=== PATIENT | female | born 1990 | race Caucasian/White ===

== ENCOUNTER 2020-09-30 13:33 | Emergency (ER) | payer SELFPAY ==
--- NOTE | 2020-09-30 14:42 | RAD REPORT ---
EXAM DESCRIPTION: RAD - Wrist Right 3 View - 09/30/2020 2:32 pm CLINICAL HISTORY: PAIN Pain COMPARISON: No comparisons FINDINGS: Intraarticular distal radius fracture is seen with mild impaction. Ulnar styloid fracture also present. Mild soft tissue swelling is seen about the wrist.
--- NOTE | 2020-09-30 14:55 | ER ---
Nurse's Notes [facility] Name: Mariana Tovar Age: 30 yrs Sex: Female : 1990 Arrival Date: 09/30/2020 Time: 13:36 Bed 12 Private MD: Diagnosis: Distal right radius fracture;Ulnar styloid fracture right wrist Presentation: 09/30 13:49 Chief complaint: Patient states: R wrist pain after slipping on ice just prior to mg2 arrival. Coronavirus screen: Client denies travel out of the [place] in the last 14 days. Ebola Screen: Patient denies exposure to infectious person. Patient denies travel to an Ebola-affected area in the 21 days before illness onset. Initial Sepsis Screen: Does the patient meet any 2 criteria? No. Patient's initial sepsis screen is negative. Does the patient have a suspected source of infection? No. Patient's initial sepsis screen is negative. Risk Assessment: Do you want to hurt yourself or someone else? Patient reports no desire to harm self or others. Onset of symptoms was September 30, 2020. 13:49 Method Of Arrival: Ambulatory mg2 13:49 Acuity: ABI 4 mg2 Historical: - Allergies: 13:51 No Known Allergies; mg2 - Home Meds: 13:51 unknown BP med [Active]; mg2 - PMHx: 13:51 Hypertension; mg2 - PSHx: 13:51 None; mg2 - Immunization history:: Adult Immunizations up to date. - Social history:: Smoking status: Patient denies any tobacco usage or history of. Screenin:49 Abuse screen: Denies threats or abuse. Denies injuries from another. Nutritional ss screening: No deficits noted. Tuberculosis screening: Never had TB. Fall Risk None identified. Assessment: 13:49 General: Appears uncomfortable, Behavior is cooperative, anxious, tearful. Pain: ss Complains of pain in right wrist Pain currently is 7 out of 10 on a pain scale. Quality of pain is described as aching, tender, Pain began just prior to arrival. Is continuous. Neuro: Level of Consciousness is awake, alert, obeys commands, Oriented to person, place, time, situation. Cardiovascular: Pulses are palpable in right radial artery, right posterior tibial artery, left radial artery and left posterior tibial artery. Respiratory: Airway is patent Respiratory effort is even, unlabored, Respiratory pattern is regular, symmetrical. GI: No signs and/or symptoms were reported involving the gastrointestinal system. : No signs and/or symptoms were reported regarding the genitourinary system. EENT: Nares are clear Oral mucosa is moist. Derm: Skin is intact, is healthy with good turgor, Skin is dry, Skin is pink, warm \T\ dry. normal. Musculoskeletal: Range of motion: limited in right wrist Swelling present in right wrist. Vital Signs: 13:49 BP 125 / 85; Pulse 78; Resp 17; Temp 97.8(O); Pulse Ox 98% on R/A; Weight 90.72 kg; mg2 Height 5 ft. 2 in. (157.48 cm); Pain 7/10; 13:49 Body Mass Index 36.58 (90.72 kg, 157.48 cm) mg2 ED Course: 13:36 Patient arrived in ED. mr 13:49 Patient has correct armband on for positive identification. Bed in low position. Call ss light in reach. 13:50 Triage completed. mg2 13:51 Arm band placed on left wrist. mg2 14:02 Isaac Dupree PA is PHCP. jr8 14:02 Lorenzo Cardoza MD is Attending Physician. jr8 14:32 XRAY Wrist RIGHT 3 view In Process Unspecified. EDMS 14:42 Alessandra Soliz, YAZMIN is Primary Nurse. ss 14:54 Sanjiv Leon MD is Referral Physician. jr8 16:25 No provider procedures requiring assistance completed. Patient did not have IV access ss during this emergency room visit. Orthoglass splint: Sugar tong splint applied on right arm. 16:25 Orthoglass splint:. dh4 Administered Medications: 14:48 Drug: TORadol 30 mg Route: IM; Site: left gluteus; ss 16:24 Follow up: Response: No adverse reaction ss 16:07 Drug: morphine 4 mg Route: IM; Site: left deltoid; ss 16:24 Follow up: Response: No adverse reaction; Medication administered at discharge. ss 16:07 Drug: Zofran (Ondansetron) 4 mg Route: PO; ss 16:24 Follow up: Response: No adverse reaction ss Outcome: 14:55 Discharge ordered by . jr8 16:25 Patient left the ED. ss 16:25 Discharged to home ambulatory, with family. 16:25 Condition: good 16:25 Discharge instructions given to patient, Instructed on discharge instructions, follow up and referral plans. medication usage, Demonstrated understanding of instructions, follow-up care, medications, Prescriptions given X 2. Signatures: Dispatcher [employer] SCOTFely KrugerAlessandra RN RN Isaac Dupree PA PA 8 Tono Ching RN RN [facility] Theron Goodman [facility]
--- NOTE | 2020-09-30 14:55 | EDPHYS ---
Physician Documentation [facility] Name: Mariana Tovar Age: 30 yrs Sex: Female : 1990 Arrival Date: 09/30/2020 Time: 13:36 Bed 12 Private MD: ED Physician Lorenzo Cardoza HPI: 09/30 14:45 This 30 yrs old Female presents to ER via Ambulatory with complaints of Fall jr8 Injury, Wrist Injury. 14:45 Details of fall: The patient fell from an upright position, while standing. Onset: The jr8 symptoms/episode began/occurred acutely, today. Associated injuries: The patient sustained right wrist, decreased range of motion, painful injury, swelling. Severity of symptoms: At their worst the symptoms were moderate, in the emergency department the symptoms are unchanged. The patient has not experienced similar symptoms in the past. The patient has not recently seen a physician. Patient stated that she was outside and slipped on ice. Fell on an outstretched hand on right side. Pain with swelling, tenderness, and decreased ROM post injury . Historical: - Allergies: 13:51 No Known Allergies; mg2 - Home Meds: 13:51 unknown BP med [Active]; mg2 - PMHx: 13:51 Hypertension; mg2 - PSHx: 13:51 None; mg2 - Immunization history:: Adult Immunizations up to date. - Social history:: Smoking status: Patient denies any tobacco usage or history of. ROS: 14:45 Constitutional: Negative for fever, chills, and weight loss. jr8 14:45 MS/extremity: Positive for decreased range of motion, pain, swelling, tenderness, of the right wrist. 14:45 All other systems are negative. Exam: 14:45 Cardiovascular: Regular rate and rhythm with a normal S1 and S2. No gallops, murmurs, jr8 or rubs. Normal PMI, no JVD. No pulse deficits. Respiratory: Lungs have equal breath sounds bilaterally, clear to auscultation and percussion. No rales, rhonchi or wheezes noted. No increased work of breathing, no retractions or nasal flaring. Skin: Warm, dry with normal turgor. Normal color with no rashes, no lesions, and no evidence of cellulitis. Neuro: Awake and alert, GCS 15, oriented to person, place, time, and situation. Cranial nerves II-XII grossly intact. Motor strength 5/5 in all extremities. Sensory grossly intact. Cerebellar exam normal. Normal gait. 14:45 Musculoskeletal/extremity: Extremities: grossly normal except: noted in the right wrist: decreased ROM, pain, swelling, tenderness, Circulation is intact in all extremities. Pulses: noted to be 2+ in the right radial artery and left radial artery, Sensation intact. Vital Signs: 13:49 BP 125 / 85; Pulse 78; Resp 17; Temp 97.8(O); Pulse Ox 98% on R/A; Weight 90.72 kg; mg2 Height 5 ft. 2 in. (157.48 cm); Pain 7/10; 13:49 Body Mass Index 36.58 (90.72 kg, 157.48 cm) mg2 Procedures: 14:45 Splinting: Splint applied to right wrist using Orthoglass splint, applied by tech. jr8 Examined by me, post splint application: neurovascular intact, 2+ distal pulses palpable, brisk capillary refill noted, Patient tolerated well. MDM: 14:03 Patient medically screened. jr8 14:45 Data reviewed: vital signs, nurses notes, radiologic studies, plain films. Data jr8 interpreted: Pulse oximetry: on room air is 98 %. Interpretation: normal. Counseling: I had a detailed discussion with the patient and/or guardian regarding: the historical points, exam findings, and any diagnostic results supporting the discharge/admit diagnosis, radiology results, the need for outpatient follow up, a orthopedic surgeon, to return to the emergency department if symptoms worsen or persist or if there are any questions or concerns that arise at home. 09/30 14:02 Order name: XRAY Wrist RIGHT 3 view; Complete Time: 14:44 jr8 09/30 14:36 Order name: Sugar Tong Forearm Splint; Complete Time: 16:25 jr8 Administered Medications: 14:48 Drug: TORadol 30 mg Route: IM; Site: left gluteus; ss 16:24 Follow up: Response: No adverse reaction ss 16:07 Drug: morphine 4 mg Route: IM; Site: left deltoid; ss 16:24 Follow up: Response: No adverse reaction; Medication administered at discharge. ss 16:07 Drug: Zofran (Ondansetron) 4 mg Route: PO; ss 16:24 Follow up: Response: No adverse reaction ss Disposition: 09/30/20 14:55 Discharged to Home. Impression: Distal right radius fracture, Ulnar styloid fracture right wrist . - Condition is Stable. - Discharge Instructions: Wrist Fracture Treated With Immobilization, Wrist Fracture Treated With ORIF. - Prescriptions for Ibuprofen 800 mg Oral Tablet - take 1 tablet by ORAL route every 8 hours As needed take with food; 30 tablet. Tylenol- Codeine #3 300-30 mg Oral Tablet - take 2 tablets by ORAL route every 6 hours As needed; 20 tablet. - Medication Reconciliation Form, Thank You Letter, Antibiotic Education, Prescription Opioid Use form. - Follow up: Sanjiv Leon MD; When: 5 - 6 days; Reason: Recheck today's complaints, Continuance of care, Re-evaluation by your physician. - Problem is new. - Symptoms have improved. Addendum: 10/04/2020 19:26 Co-signature as Attending Physician, Lorenzo Cardoza MD I agree with the assessment and t w4 plan of care. Signatures: Dispatcher [employer] EDNV Alessandra Soliz RN RN Isaac Dupree PA PA jr8 Lorenzo Cardoza MD MD tw4 Tono Ching RN RN mg2 Corrections: (The following items were deleted from the chart) 09/30 16:25 14:55 09/30/2020 14:55 Discharged to Home. Impression: Distal right radius fracture; ss Ulnar styloid fracture right wrist . Condition is Stable. Forms are Medication Reconciliation Form, Thank You Letter, Antibiotic Education, Prescription Opioid Use. Follow up: Sanjiv Leon; When: 5 - 6 days; Reason: Recheck today's complaints, Continuance of care, Re-evaluation by your physician. Problem is new. Symptoms have improved. jr8
[2020-09-30] MEDS ORDERED: KETOROLAC 30 MG/ML INJ ONE (14:59)
[2020-09-30] MEDS ORDERED: MORPHINE 4 MG/ML SYR ONE (16:19)
[2020-09-30] MEDS ORDERED: ONDANSETRON 4 MG (ODT) TAB ONE (16:20)
[2020-09-30 16:29] VITALS: BP 125/85; TEMP 97.8; O2SAT 98
== END 2020-09-30 16:25 | disposition home or self-care (01) ==
LOC: ER 13:33
PROC: 2W3CX1Z Immobilization of Right Lower Arm using Splint (ICD-10-PCS; principal; 2020-09-30)
DX: S52.511A Displaced fracture of right radial styloid process, initial encounter for closed fracture (principal); W00.0XXA Fall on same level due to ice and snow, initial encounter; Y93.89 Activity, other specified; Y92.89 Other specified places as the place of occurrence of the external cause; I10 Essential (primary) hypertension
CPT/HCPCS: 96372; 99284

== ENCOUNTER 2020-10-11 14:05 | Day surgery (SDC) | payer SELFPAY ==
[2020-10-11] MEDS ORDERED: MIDAZOLAM HCL 2 MG/2 ML INJ ONE ×2 (14:28→17:04)
[2020-10-11] MEDS ORDERED: FENTANYL CITR 100 MCG/2 ML ONE (14:28)
[2020-10-11] MEDS ORDERED: propofoL 200 MG/20 ML VIAL IV ONE (14:28)
[2020-10-11] MEDS ORDERED: KETOROLAC 30 MG/ML INJ ONE (14:29)
[2020-10-11] MEDS ORDERED: dexAMETHasone 10 MG/ML VIAL ONE ×2 (14:29→17:03)
[2020-10-11] MEDS ORDERED: LIDOCAINE 2% MPF 5 ML VIAL ONE (14:29)
[2020-10-11] MEDS ORDERED: ONDANSETRON 4 MG/2 ML VIAL ONE (14:29)
[2020-10-11 14:44] LABS: Specific Gravity 1.015 (1.005-1.030)
[2020-10-11] MEDS: FENTANYL CITR 100 MCG/2 ML ONE ×3 (15:14→16:14)
--- NOTE | 2020-10-11 15:50 | P.BOP ---
Preoperative diagnosis: right displaced intraarticular distal radius fracture Postoperative diagnosis: same Primary procedure: CRPP right distal radius Estimated blood loss: <3ccs Anesthesia: General Complications: None Transferred to: Recovery Room Condition: Good
[2020-10-11] MEDS ORDERED: HYDROMORPHONE HCL 1 MG/ML INJ ONE ×2 (16:19→16:45)
[2020-10-11] MEDS: HYDROMORPHONE HCL 1 MG/ML INJ ONE ×2 (16:24→16:29)
[2020-10-11] MEDS ORDERED: CEFAZOLIN/SWI 1gm 1 GM/10 ML SYR IVP SCH (16:30)
[2020-10-11] MEDS ORDERED: NS 0.9% VIAL 10 ML ONE (17:03)
[2020-10-11] MEDS ORDERED: LIDOCAINE 2% INJ, MPF 2 ML 1 ML ONE (17:04)
[2020-10-11] MEDS ORDERED: ROPLVACAINE HCL 40 ML ONE (17:04)
[2020-10-11 18:27] VITALS: BP 137/93; TEMP 97.7; O2SAT 98
--- NOTE | 2020-10-12 02:05 | OP ---
Date of Procedure: 10/11/2020 Surgeon: Shaun Samuels MD Preoperative Diagnosis: Right wrist displaced intra-articular distal radius fracture. Postoperative Diagnosis: Right wrist displaced intra-articular distal radius fracture. Procedure: Right wrist closed reduction with percutaneous pin fixation and supplemental casting. Estimated Blood Loss: Less than 2 cc. Complications: No complications. Pathology Specimen: No pathology specimen sent. Indication For Operation: Ms. Tovar is a 30-year-old female who unfortunately fell on the ice injuri ng her right upper extremity. She was seen and examined in the emergency department. However, she d id not come to see me until definitely some days after the injury. She was in a sugar-tong splint. She is neurovascularly intact. X-rays were reviewed, which revealed a comminuted intra-articular dis ulisses radius fracture. Risks, benefits, and alternatives to different methods of treatment have been d iscussed with the patient including external fixation, possibility of open reduction with fixation or pinning. Also discussed casting in place. Recommendation is definitely not for casting in place. Operative intervention is indicated. Primary recommendation is for external fixation and supplementa l pinning. However, the patient has reviewed this and has decided on pinning, which is indicated and risks, benefits, and alternatives of this procedure again discussed with her. She states she unders tands things as presented as well as the need for prolonged casting and expectations for recovery. A ll of her questions were answered. Description Of Procedure: The patient was taken to the operating room and placed in the supine posit ion. General anesthesia was obtained by staff. Following this, well-padded tourniquet was placed on superior right arm, however was not used throughout the case. Her right upper extremity was then pr epped and draped in usual sterile fashion. C-arm was brought in. It appears that we could not get a fairly good closed reduction with the exception of the most volar fragment, but with a combination o f reduction maneuver and slight taking of a radial styloid pin, this has been placed, whic h appears to hold radius out to length as well as have appropriate radial inclination. There is some dorsal tilt and a 4.5 pin is then placed under the fracture site and used as a lever. It was too fa r to the through the volar cortex and to ensure that it was not significantly prominent. Following t his, x-rays were taken, which demonstrated still some displacement of the volar fragment. However, t he alignment of the wrist is greatly improved. The pins were then bent and especially the dorsal one was packed quite a bit with 4x4s to avoid further intrusion of the pin. She was then placed in extr breana well-padded cast. The cast was then bivalved and wrapped with an Phan wrap. She is awakened an d taken to recovery room in good condition. No complications. /MODJessie Voice ID: [id number] Report ID: [id number]
--- NOTE | 2020-11-01 12:54 | RAD REPORT ---
EXAM DESCRIPTION: RAD - Fluoroscopy <1 Hour - 10/14/2020 10:47 am CLINICAL HISTORY: Radial fracture FINDINGS: The examination is being submitted to me today for interpretation Fluoroscopy time 1 minutes. One fluoroscopic spot image is submitted. Surgery performed by . A lateral view of the wrist was obtained. A pin overlies the wrist and distal aspect of the distal ra dius. Please refer to the surgeons report for additional findings
== END 2020-10-11 18:20 | disposition home or self-care (01) ==
LOC: OR 14:05
PROVIDERS: ATTEND Orthopaedic Surgery
PROC: 0PSH34Z Reposition Right Radius with Internal Fixation Device, Percutaneous Approach (ICD-10-PCS; principal; 2020-10-11 14:30)
DX: S52.571A Other intraarticular fracture of lower end of right radius, initial encounter for closed fracture (principal)
CPT/HCPCS: 76000; 81025; J1100; J1170; J2250; J2405; J2704; J2795; J3010; U0003